=== PATIENT | female | born 1975 | race Hispanic/Latino ===

== ENCOUNTER 2019-05-03 07:36 | Inpatient (IN) | payer BC, OTHER ==
[~2019-05-03] VITALS: Ht 149.9 cm; Wt 72.6 kg
[2019-05-03] MEDS ORDERED: SODIUM CHLORIDE 0.9% 1000ML 1,000 ML IV STA (07:55)
[2019-05-03] MEDS ORDERED: KETOROLAC TROMETHAMINE 30 MG/ML VIAL IV ONE ×2 (08:30→11:15)
[2019-05-03 08:33] LABS: BILIRUBIN,URINE NEGATIVE (NEGATIVE); CLARITY,URINE CLEAR (CLEAR); COLOR,URINE YELLOW (YELLOW); KETONES,URINE NEGATIVE (NEGATIVE); LEUKOCYTE ESTERASE ,URINE MODERATE (NEGATIVE); NITRITE,URINE NEGATIVE (NEGATIVE); PROTEIN,URINE DIPSTICK NEGATIVE (NEGATIVE); URINE UROBILINOGEN 0.2 mg/dL (0.2 - 1)
[2019-05-03 08:59] LABS: BACTERIA,URINE RARE /HPF; EPITHELIAL CELLS,URINE FEW /LPF; RBC,URINE 0-5 /HPF (0-5); WBC,URINE (MAN) 0-5 /HPF (0-5)
[2019-05-03 09:02] LABS: BASOPHILS % 0.3 % (0.0-1.0); EOSINOPHILS # (AUTO) 0.2 (0.0-0.4); EOSINOPHILS % 1.8 % (0.0-6.0); HEMATOCRIT 43.5 % (34.2-44.1); HEMOGLOBIN 14.6 g/dL (12.0-16.0); LYMPHOCYTES # (AUTO) 2.2 (1.0-3.2); LYMPHOCYTES % 21.2 % (18.0-39.1); MEAN CORPUSCULAR HEMOGLOBIN 30.7 pg (28-32); MEAN CORPUSCULAR HGB CONC 33.6 g/dL (31-35); MEAN CORPUSCULAR VOLUME 91.6 fL (81-99); MONOCYTES # (AUTO) 0.6 (0.2-0.8); MONOCYTES % 5.5 % (4.4-11.3); NEUTROPHILS # (AUTO) 7.3 (2.1-6.9); NEUTROPHILS % 70.8 % (38.7-80.0); PLATELET COUNT 286 x10e3/uL (140-360); RED BLOOD COUNT 4.75 x10e6/uL (3.6-5.1); RED CELL DISTRIBUTION WIDTH 12.7 % (11.7-14.4)
[2019-05-03 09:15] LABS: ALANINE AMINOTRANSFERASE 11 IU/L (0-55); ALBUMIN 3.6 g/dL (3.5-5.0); ALBUMIN/GLOBULIN RATIO 0.9 (0.8-2.0); ALKALINE PHOSPHATASE 57 IU/L (40-150); ANION GAP 12.1 mmol/L (8-16); BLOOD UREA NITROGEN 9 mg/dL (7-26); BUN/CREATININE RATIO 13 (6-25); CALCIUM 9.5 mg/dL (8.4-10.2); CARBON DIOXIDE 28 mmol/L (22-29); CHLORIDE 103 mmol/L (98-107); CREATININE, SERUM 0.71 mg/dL (0.57-1.11); EST GLOMERULAR FILTRATION RATE > 60 ML/MIN (60-); GLUCOSE 81 mg/dL (74-118); LIPASE 32 U/L (8-78); POTASSIUM 4.1 mmol/L (3.5-5.1); SODIUM 139 mmol/L (136-145)
[2019-05-03] MEDS ORDERED: IOPAMIDOL 370 MG/ML 200 ML INFUS..BTL INJ ONE (10:35)
[2019-05-03] MEDS ORDERED: SODIUM CHLORIDE 0.9% 50ML 50 ML ONE (10:35)
--- NOTE | 2019-05-03 11:12 | Diagnostic Imaging Report ---
TECHNIQUE: CT of the abdomen and pelvis WITH intravenous contrast and WITHOUT oral contrast. Dose modulation, iterative reconstruction, and/or weight-based adjustment of the mA/kV was utilized to reduce the radiation dose to as low as reasonably achievable. INDICATION: ^ABD PAIN ^[id number] ^1011 ^Y. COMPARISON: None. FINDINGS: LOWER THORAX: Unremarkable. HEPATOBILIARY: No focal hepatic lesions. Gallbladder is unremarkable. No biliary ductal dilatation. SPLEEN: No splenomegaly. A 0.7 cm hypodensity in the posteroinferior spleen is too small to further characterize. PANCREAS: No focal masses or ductal dilatation. ADRENALS: No adrenal nodules. KIDNEYS/URETERS: No hydronephrosis, stones, or masses. Left upper pole renal cortical scarring. PELVIC ORGANS/BLADDER: Intrauterine device in the expected location.. PERITONEUM/RETROPERITONEUM: No free air or fluid. LYMPH NODES: No lymphadenopathy. VESSELS: Unremarkable. GI TRACT: No distention or wall thickening. The appendix is mildly thickened with some surrounding fat stranding and vascular engorgement. 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 IMPRESSION: 1. The findings are concerning for an early acute appendicitis. 2. 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 3. Left upper pole renal cortical scarring. The findings was discussed with Dr. Moulton on 05/03/2019 at 11:05 AM. Signed by: Roman Stone JR, MD on 05/03/2019 11:08 AM
[2019-05-03] MEDS ORDERED: MORPHINE SULFATE 2 MG/ML SYR 1ML IV PRN (11:15)
[2019-05-03] MEDS ORDERED: MORPHINE SULFATE INJ 4 MG/ML INJ 1ML IV PRN ×3 (11:15→11:30)
--- NOTE | 2019-05-03 11:20 | NUR ---
rec'd report in walking rounds with sherrill diaz
[2019-05-03] MEDS ORDERED: PIPERACILLIN/TAZO 4.5 GM 100 ML IV SCH (12:00)
--- NOTE | 2019-05-03 12:27 | NUR ---
DR. JUNG HAS UPDATED PT ON PENDING ADMIT/POC. NPO AT THIS TIME
[2019-05-03] MEDS: SODIUM CHLORIDE 0.9% 1000ML 1,000 ML IV SCH ×2 (12:28→17:13)
--- NOTE | 2019-05-03 12:49 | NUR ---
DR. OJ PORTILLO IN TO SEE PT. RE SX FOR TODAY
--- NOTE | 2019-05-03 13:08 | NUR ---
CONSENT SIGNED AND PT OFF TO THE OR. V.S.S.
[2019-05-03] MEDS ORDERED: BUPIVACAINE 0.25%/EPI 30ML SDV INJ ONE (13:26)
--- OUTSIDE RECORDS SUMMARY | 2019-05-03 13:26 | XMS REPORT ---
Author [facility] Address Unknown Phone Unavailable Care Team Providers Care Machine Lacer Name Role Phone FABIANA LAVONNE Unavailable Unavailable Problems This patient has no known problems. Allergies, Adverse Reactions, Alerts This patient has no known allergies or adverse reactions. Medications This patient has no known medications. Results Test Description Test Time Test Comments Text Results Atomic Results Result Comments CT ABDOMEN/PELVIS W 2019-05-03 10:50:00 [place] [address] Patient Name: CHERELLE DEL REAL MR #: [id number] : 1975 Age/Sex: 44/F Req #: [id number] Adm Physician: Ordered by: LAVONNE MOULTON DO Report #: [id number] Location: ER Room/Bed: Procedure: [id number] CT/CT ABDOMEN/PELVIS W Exam Date: 05/03/19 Exam Time: 1011 REPORT STATUS: Signed TECHNIQUE: CT of the abdomen and pelvis WITH intrave nous contrast and WITHOUT oral contrast. Dose modulation, iterative reconstruction, and/or weight-based adjustment of the mA/kV was utilized to reduce the radiation dose to as low as reasonably achievable. INDICATION: ABD PAIN [id number] 1011 Y. COMPARISON: None. FINDINGS: LOWER THORAX: Unremarkable. HEPATOBILIARY: No focal hepatic lesions. Gallbladder is unremarkable. No biliary ductal dilatation. SPLEEN: No splenomegaly. A 0.7 cm hypodensity in the posteroinferior spleen is too small to further characterize. PANCREAS: No focal masses or ductal dilatation. ADRENALS: No adrenal nodules. KIDNEYS/URETERS: No hydronephrosis, stones, or masses. Left upper pole renal cortical scarring. PELVIC ORGANS/BLADDER: Intrauterine device in the expected location.. PERITONEUM/RETROPERITONEUM: No free air or fluid. LYMPH NODES: No lymphadenopathy. VESSELS: Unremarkable. GI TRACT: No distention or wall thickening. The appendix is m ildly thickened with some surrounding fat stranding and vascular engorgement. 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 IMPRESSION: 1. The findings are concerning for an early acute appendicitis. 2. 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 3. Left upper pole renal cortical scarring. The findings was discussed with Dr. Moulton on 05/03/2019 at 11:05 AM. Signed by: Roman Stone JR, MD on 05/03/2019 11:08 AM Dictated By: ROMAN STONE MD [id number] Transcribed By: LINA on 05/03/19 1105 COPY TO: LAVONNE MOULTON DO
[2019-05-03] MEDS ORDERED: DEXAMETHASONE SOD PHOS INJ 4 MG/ML VIAL ONE (14:10)
[2019-05-03] MEDS ORDERED: PROPOFOL IV EMULSION 10 MG/ML 20 ML VIAL ONE (14:10)
[2019-05-03] MEDS ORDERED: CEFOXITIN SOD 1 GM VIAL ONE (14:10)
[2019-05-03] MEDS ORDERED: LIDOCAINE HCL 2% LOCAL INJ 5 ML SDV VIAL INJ ONE (14:10)
[2019-05-03] MEDS ORDERED: SEVOFLURANE INHAL SOLN 250 ML PEN BTL ONE (14:10)
[2019-05-03] MEDS ORDERED: ONDANSETRON HCL INJ 2MG/ML 2ML 2 MG/ML VIAL ONE (14:10)
[2019-05-03] MEDS ORDERED: ROCURONIUM BROMIDE 10 MG/ML 5ML VIAL ONE (14:10)
[2019-05-03] MEDS ORDERED: NEOSTIGMINE 5 MG/5ML SYR ONE (14:10)
[2019-05-03] MEDS ORDERED: KETOROLAC TROMETHAMINE 30 MG/ML VIAL ONE (14:10)
[2019-05-03] MEDS ORDERED: GLYCOPYRROLATE INJ 1MG/ 5 ML SYR ONE (14:10)
--- NOTE | 2019-05-03 16:00 | NUR ---
RECEIVED PATIENT FROM PACU. PATIENT A/O X3, EVEN RESPIRATIONS ON RA. LUNG SOUNDS CLEAR TO AUSCULTATION. BOWEL SOUNDS ACTIVE, NO EDEMA. 3 TROCAR SITES ON ABDOMEN INTACT NO DRAINAGE. LEFT AC 18 GAUGE IV WITH NS @ 125 CC/HR. PAIN 6/10 AT THIS TIME, PRN PAIN MEDICATION AVAILABLE. VS STABLE. FAMILY AT BEDSIDE. ORIENTED PATIENT TO ROOM AND CALL LIGHT. BED LOW, WHEELS LOCKED, SIDE RAILS X2. CALL LIGHT IN REACH WILL CONTINUE TO MONITOR PATIENT.
[2019-05-03 16:34] VITALS: BP 114/58
[2019-05-03 16:35] VITALS: BP 114/58
[2019-05-03 16:57] VITALS: BP 114/58
[2019-05-03] MEDS: PIPERACILLIN/TAZO 4.5 GM 100 ML IV SCH ×2 (17:13→23:32)
[2019-05-03] MEDS: MORPHINE SULFATE INJ 4 MG/ML INJ 1ML IV PRN ×2 (17:14→21:52)
--- NOTE | 2019-05-03 19:00 | NUR ---
RECEIVED PATIENT IN BEDSIDE SHIFT REPORT. PAIN REPORTED AT 12/10, WILL ADMINISTER PAIN MEDS WHEN DUE. NO S&S OF DISTRESS NOTED. PATIENT REPORTS SHE AMBULATED TO RESTROOM WITH FAMILY MEMBER ASSISTANCE, REMINDED PATIENT TO CALL FOR ASSISTANCE FROM STAFF TO ENSURE SAFETY, PATIENT VERBALIZED UNDERSTANDING. 3 TROCHAR SITES C/D/I. L AC 18G IV RUNNING NS @ 125ML/HR, ASYMPTOMATIC, INTACT, AND PATENT. BED LOCKED IN LOWEST POSITION, SIDE RAILS UPX2, CALL LIGHT IN REACH.
[2019-05-03 19:40] VITALS: BP 119/68
--- NOTE | 2019-05-03 19:50 | Consultation ---
DATE OF CONSULTATION: 05/03/2019 CHIEF COMPLAINT: Abdominal pain. HISTORY OF PRESENT ILLNESS: This patient is a 44-year-old female with 1-day history of pain in right lower quadrant with nausea. No vomiting. No fever, chills, or diarrhea. PAST MEDICAL HISTORY: Negative for chronic illness. PAST SURGICAL HISTORY: Positive for two and cervical curettage. ALLERGIES: SHE HAS NO DRUG ALLERGIES. SOCIAL HABITS: She does not smoke or drink. REVIEW OF SYSTEMS: No chest pain or shortness of breath. PHYSICAL EXAMINATION: VITAL SIGNS: Stable. Afebrile. GENERAL: She is awake, alert, in moderate discomfort. HEENT: Sclerae nonicteric. NECK: Supple. LUNGS: Clear. HEART: Regular rate and rhythm. ABDOMEN: Soft with guarding tenderness and rebound in right lower quadrant. LABORATORY DATA: White cell count 10.2. Creatinine of 0.7. Liver function tests unremarkable. CT scan of the abdomen show evidence of appendicitis. ASSESSMENT: Appendicitis. PLAN: Laparoscopic appendectomy. Attendant risks discussed. Yuan Stern MD DNWinnie/MODWinnie /[id number]
[2019-05-03 19:58] VITALS: BP 119/68
--- NOTE | 2019-05-03 20:57 | NUR ---
PATIENT CALLED REPORTING SHE FELT LIKE SHE WAS HAVING TROUBLE GETTING ENOUGH OXYGEN. SP02 WAS 95%, HR 60-70. ADMINISTERED 2L O2 VIA NC, SPO2 INCREASED TO 99-100%. AFTER A FEW BREATHS, PATIENT REPORTS FEELING BETTER. WILL LEAVE O2 ON FOR NOW AND REASSESS IN A FEW HOURS. REMINDED PATIENT TO CALL IMMEDIATELY IF SHE FEELS WORSE AGAIN, PATIENT VERBALIZED UNDERSTANDING.
[2019-05-03] MEDS: ONDANSETRON HCL INJ 2MG/ML 2ML 2 MG/ML VIAL IV PRN (21:52)
--- NOTE | 2019-05-03 22:16 | Operative Report ---
DATE OF PROCEDURE: 05/03/2019 SURGEON: Yuan Stern MD PREOPERATIVE DIAGNOSIS: Appendicitis. POSTOPERATIVE DIAGNOSIS: Appendicitis. OPERATIVE PROCEDURE: Laparoscopic appendectomy. DOUBLE CORNER CUTTER: None. ANESTHESIA: General. INDICATION FOR SURGERY: A 44-year-old female with history of abdominal pain for one day with a CT scan showing appendicitis. She consented for laparoscopic appendectomy. Attendant risks discussed. PROCEDURE FINDING: Appendicitis. DESCRIPTION OF PROCEDURE: The patient was brought to the OR, intubated. The abdomen was prepped and draped in sterile fashion. An infraumbilical incision was made. A 12-mm port inserted. Insufflation began under direct vision. Other port site placed in the right upper quadrant and suprapubic region. Appendix noted to be grossly inflamed, nonperforated. The neck of the appendix was exposed by taking the mesoappendix with the LigaSure. Using Endoloop ties of 0 PDS, the appendix was controlled at the neck with the loop ties and the appendix amputated distal to the tie with the LigaSure. The appendix was placed in an Endopouch and retrieved out of the peritoneal cavity. Operative field irrigated. Hemostasis achieved. All ports removed under direct vision. The fascia closure with #0 Vicryl. The skin was closed with subcuticular stitch. The patient was extubated and transported to recovery room. ESTIMATED BLOOD LOSS: 3 mL. MD LONNIE De Paz/CELSAL /[id number]
[2019-05-03 23:59] VITALS: BP 125/67
--- NOTE | 2019-05-04 03:00 | NUR ---
PATIENT REPORTS PAIN AT IV SITE AFTER BUMPING ARM WHEN USING RESTROOM, IV INFILTRATED. IV REMOVED, CATHETER TIP INTACT, PRESSURE DRESSING APPLIED. WARM COMPRESS PLACED ON IV. PATIENT REPORTS PAIN DECREASING, NO REDNESS NOTED. WILL CONTINUE TO MONITOR.
--- NOTE | 2019-05-04 04:10 | NUR ---
NEW IV PLACED IN R FA 22G, IV FLUIDS RECONNECTED. ASEPTIC PROCEDURE FOLLOWED. BED LOCKED IN LOWEST POSITION, SIDE RAILS UPX2, CALL LIGHT IN REACH.
[2019-05-04 04:52] VITALS: BP 113/54
[2019-05-04] MEDS: PIPERACILLIN/TAZO 4.5 GM 100 ML IV SCH ×2 (05:22→12:10)
[2019-05-04] MEDS: SODIUM CHLORIDE 0.9% 1000ML 1,000 ML IV SCH (06:55)
[2019-05-04 08:05] VITALS: BP 116/60
[2019-05-04] MEDS: MORPHINE SULFATE INJ 4 MG/ML INJ 1ML IV PRN (08:13)
[2019-05-04] MEDS: ONDANSETRON HCL INJ 2MG/ML 2ML 2 MG/ML VIAL IV PRN (08:13)
[2019-05-04 09:26] VITALS: BP 116/60
[2019-05-04 12:54] VITALS: BP 111/56
--- NOTE | 2019-05-04 14:50 | NUR ---
aware patient has not had BM today and is passing gas. Patient cleared to discharge per . notified
[2019-05-04 16:50] VITALS: BP 127/60
[2019-05-04] MEDS ORDERED: FENTANYL CITRATE/PF 100MCG/2 ML INJ ONE (18:06)
[2019-05-04] MEDS ORDERED: MIDAZOLAM HCL 2 MG/2 ML VIAL ONE (18:06)
--- NOTE | 2019-05-04 18:26 | NUR ---
Right FA IV discontinued. No signs of infiltration. 2x2 gauze and tape placed. Taken via wheelchair to personal car. Accompanied by boyfriend. AAOX4 to time, person, place, situation. Respirations even and unlabored. Bandaids to abdomen clean, dry, and intact. Discharge instructions and all personal belongings taken with patient. RX to be faxed to pharmacy by . Patient aware.
== END 2019-05-04 18:26 | disposition home or self-care (01) | DRG 343 ==
LOC: ER 07:36 → OR 13:25 → PACU V 15:11 → MED/SURG 16:00
PROVIDERS: ADMIT Internal Medicine; ATTEND Internal Medicine
PROC: 0DTJ4ZZ Resection of Appendix, Percutaneous Endoscopic Approach (ICD-10-PCS; principal; 2019-05-03 15:00)
DX: K35.80 Unspecified acute appendicitis (principal)
CPT/HCPCS: 36415; 74177; 80053; 81001; 81025; 83690; 85025; 88304; 99284; J0694; J1100; J1885; J2001; J2250; J2270; J2405; J2543; J3010; J7030; Q9967

== ENCOUNTER 2019-06-06 10:08 | Emergency (ER) | payer BC ==
[~2019-06-06] VITALS: Ht 149.9 cm; Wt 72.6 kg
[2019-06-06] MEDS ORDERED: SODIUM CHLORIDE 0.9% 1000ML 1,000 ML IV STA (10:13)
[2019-06-06 10:45] LABS: BASOPHILS % 0.4 % (0.0-1.0); EOSINOPHILS # (AUTO) 0.3 (0.0-0.4); EOSINOPHILS % 2.6 % (0.0-6.0); HEMOGLOBIN 13.5 g/dL (12.0-16.0); LYMPHOCYTES # (AUTO) 4.4 (1.0-3.2); LYMPHOCYTES % 43.2 % (18.0-39.1); MEAN CORPUSCULAR HEMOGLOBIN 30.3 pg (28-32); MEAN CORPUSCULAR HGB CONC 33.8 g/dL (31-35); MEAN CORPUSCULAR VOLUME 89.9 fL (81-99); MONOCYTES # (AUTO) 0.7 (0.2-0.8); MONOCYTES % 7.2 % (4.4-11.3); NEUTROPHILS # (AUTO) 4.7 (2.1-6.9); NEUTROPHILS % 46.3 % (38.7-80.0); PLATELET COUNT 262 x10e3/uL (140-360); RED BLOOD COUNT 4.45 x10e6/uL (3.6-5.1)
[2019-06-06 10:48] LABS: ALANINE AMINOTRANSFERASE 16 IU/L (0-55); ALBUMIN 3.6 g/dL (3.5-5.0); ALKALINE PHOSPHATASE 49 IU/L (40-150); ANION GAP 11.8 mmol/L (8-16); BLOOD UREA NITROGEN 9 mg/dL (7-26); BUN/CREATININE RATIO 16 (6-25); CARBON DIOXIDE 25 mmol/L (22-29); CHLORIDE 107 mmol/L (98-107); CREATININE, SERUM 0.58 mg/dL (0.57-1.11); EST GLOMERULAR FILTRATION RATE > 60 ML/MIN (60-); GLUCOSE 81 mg/dL (74-118); POTASSIUM 3.8 mmol/L (3.5-5.1); SODIUM 140 mmol/L (136-145)
[2019-06-06] MEDS ORDERED: MORPHINE SULFATE 2 MG/ML SYR 1ML IV ONE (12:00)
[2019-06-06] MEDS ORDERED: ONDANSETRON HCL INJ 2MG/ML 2ML 2 MG/ML VIAL IV ONE (12:00)
[2019-06-06 12:26] LABS: BILIRUBIN,URINE NEGATIVE (NEGATIVE); CLARITY,URINE SL CLOUDY (CLEAR); COLOR,URINE YELLOW (YELLOW); KETONES,URINE NEGATIVE (NEGATIVE); LEUKOCYTE ESTERASE ,URINE NEGATIVE (NEGATIVE); NITRITE,URINE NEGATIVE (NEGATIVE); PROTEIN,URINE DIPSTICK NEGATIVE (NEGATIVE); URINE UROBILINOGEN 0.2 mg/dL (0.2 - 1)
[2019-06-06 12:45] LABS: PREGNANCY TEST, URINE NEGATIVE (NEGATIVE)
[2019-06-06 12:49] LABS: BACTERIA,URINE MANY /HPF; EPITHELIAL CELLS,URINE MANY /LPF; RBC,URINE 0-5 /HPF (0-5)
[2019-06-06 12:50] LABS: AMORPHOUS SEDIMENT,URINE MODERATE (FEW)
--- NOTE | 2019-06-06 14:15 | Diagnostic Imaging Report ---
EXAM: CT Abdomen and Pelvis WITHOUT intravenous contrast INDICATION: Flank pain COMPARISON: None. TECHNIQUE: Abdomen and pelvis were scanned utilizing a multidetector helical scanner from the lung base to the pubic symphysis without administration of IV contrast. Coronal and sagittal reformations were obtained. IV CONTRAST: None ORAL CONTRAST: Water COMPLICATIONS: None RADIATION DOSE: Total DLP: 472.0 mGy*cm Dose modulation, iterative reconstruction, and/or weight based adjustment of the mA/kV was utilized to reduce the radiation dose to as low as reasonably achievable. FINDINGS: LOWER THORAX: Minimal bibasilar dependent subsegmental atelectasis. HEPATOBILIARY: No focal hepatic lesions. No biliary ductal dilatation. The gallbladder appears unremarkable. SPLEEN: No splenomegaly. PANCREAS: No focal masses or ductal dilatation. ADRENALS: No adrenal nodules. KIDNEYS/URETERS: No hydronephrosis, stones, or solid mass lesions. Left renal cortical defects appear unchanged. Correlate with history of prior partial nephrectomy. PELVIC ORGANS/BLADDER: IUD in the uterus. PERITONEUM / RETROPERITONEUM: No free air or fluid. LYMPH NODES: No lymphadenopathy. VESSELS: Unremarkable. GI TRACT: No abnormal bowel thickening. No bowel obstruction. BONES AND SOFT TISSUES: No acute osseous injury. No suspicious lytic or blastic lesions. S-shaped curvature of the thoracolumbar spine. Mild multilevel degenerative changes. IMPRESSION: No acute findings in the abdomen or pelvis. Signed by: Colleen Trujillo MD on 06/06/2019 2:12 PM
== END 2019-06-06 15:04 | disposition home or self-care (01) ==
LOC: ER 10:08
DX: R10.31 Right lower quadrant pain (principal)
CPT/HCPCS: 36415; 74176; 80053; 81001; 81025; 85025; 99284; J2270; J2405; J7030